=== PATIENT | male | born 1945 | race Caucasian/White ===

== ENCOUNTER 2021-09-19 05:54 | Day surgery (SDC) | payer OTHER ==
[2021-09-16 09:54] LABS: BASOPHILS # (AUTO) 0.1 X10'3 (0-0.2); EOSINOPHILS # (AUTO) 0.1 X10'3 (0-0.9); EOSINOPHILS % (AUTO) 2.5 % (0-6); LYMPHOCYTES # (AUTO) 1.1 X10'3 (1.1-4.8); MEAN CORPUSCULAR HEMOGLOBIN 32.1 PG (27.0-31.0); MEAN CORPUSCULAR HGB CONC 34.3 g/dL (33.0-36.5); MEAN CORPUSCULAR VOLUME 93.6 FL (78-98); MEAN PLATELET VOLUME 7.8 FL (7.4-10.4); MONOCYTES # (AUTO) 0.5 X10'3 (0-0.9); MONOCYTES % (AUTO) 9.9 % (2-12); NEUTROPHILS # (AUTO) 3.4 X10'3 (1.8-7.7); NEUTROPHILS % (AUTO) 65.6 % (42-75); PRE OP HEMOGLOBIN 13.1 g/dL (14.0-17.9); PRE OP PLATELET COUNT 183 X10'3 (140-440); RED BLOOD COUNT 4.06 X10'6 (4.70-6.10); RED CELL DISTRIBUTION WIDTH 13.3 % (11.5-14.5)
[2021-09-16 10:01] LABS: ALBUMIN 3.3 G/DL (3.4-5.0); ALKALINE PHOSPHATASE 75 IU/L (46-116); BLOOD UREA NITROGEN 17 MG/DL (7-18); BUN/CREATININE RATIO 14.9 (5.4-32.0); CALCIUM 8.5 MG/DL (8.5-10.1); CREATININE 1.14 MG/DL (0.60-1.10); PRE OP ALT 49 U/L (30-65); PRE OP AST 24 U/L (10-37); PRE OP BILIRUB, TOTAL 0.3 MG/DL (0.0-1.0); PRE OP GLUCOSE 90 MG/DL (70-104); TOTAL CARBON DIOXIDE 26.6 MMOL/L (24-32); TOTAL PROTEIN 6.5 G/DL (6.4-8.2); eGFR 63 ML/MIN
[2021-09-16 11:04] LABS: CHLORIDE 101 MMOL/L (99-107); PRE OP POTASSIUM 4.6 MMOL/L (3.4-5.1)
[2021-09-16 11:06] LABS: PRE OP ANION GAP 7 (8-16); PRE OP SODIUM 135 MMOL/L (135-145)
[2021-09-19] VITALS (9 sets, daily range): BP systolic 130–190; BP diastolic 70–95
[~2021-09-19] VITALS: Ht 170.2 cm; Wt 78.3 kg
[~2021-09-19 05:54] MED LIST: AMLO-139 PO; AMPH10TA PO; ATOR10TA87 PO; BUDESONIDE PO; CARV25TA2 PO; DOCUMENT DATE & TIME OF BETA-BLOCKER PO ONE; LEUP3.753 IM; LISI20TA28 PO; METH-603 PO; PARO20TA6 PO; PRIM250T32 PO; SPIR1TAB4 PO; cefazolin/dext.iso 2gm/50ml IV ONE; famotidine 20mg tablet PO ONE; ringers solution, lacted 1,000 ML IV SCH
[2021-09-19] MEDS ORDERED: BUPIVAcaine/PF 2.5mg/ml (0.25%) 10ml vial ONE (06:52)
[2021-09-19] MEDS ORDERED: IBUP-1985 PO (08:04)
[2021-09-19] MEDS ORDERED: meperidine/PF 25mg/ml syringe IV PRN ×3 (08:55)
[2021-09-19] MEDS ORDERED: proCHLORperazine 10 MG/2 ml inj IV PRN (08:55)
[2021-09-19] MEDS ORDERED: ondansetron/PF 4mg/2ml inj IV PRN (08:55)
[2021-09-19] MEDS ORDERED: morphine 4 MG/ML inj SYRINge IV PRN (08:55)
[2021-09-19] MEDS ORDERED: morphine 2 MG/ML inj. syringe IV PRN (08:55)
[2021-09-19] MEDS ORDERED: labetalol 20mg/4ml (5mg/ml) syringe IV PRN (08:55)
[2021-09-19] MEDS ORDERED: ringers solution, lacted 1,000 ML IV SCH (08:55)
[2021-09-19] MEDS ORDERED: fentaNYL/PF 50MCG/1 ML 2ML syringe ONE (10:30)
[2021-09-19] MEDS ORDERED: midazolam 1 mg/ML 2ml injection ONE (10:31)
[2021-09-19] MEDS ORDERED: LIDOcaine 0.5% (5mg/ml) 50ml vial ONE (10:32)
--- NOTE | 2021-09-19 11:00 | NUR ---
Received from OR via [facility], accompanied by Anesthesiologist Christine and report given by Anesthesiolgist. RT HAND DSG CDI,MOVES FINGERS, FINGERS WARM, BRISK CAP REFILLS. VSS. NO CO PAIN.
--- NOTE | 2021-09-19 12:00 | NUR ---
DC TO HOME, VSS,DSG TO RT HAND, CDI. MOVING FINGERS. ICE PRESENT. BRISK CAP REFILLS.DC INSTRUCTIONS GIVEN TO PT AND , STATES UNDERSTANDS. TO HOME VIA POV.
== END 2021-09-19 12:00 | disposition home or self-care (01) ==
LOC: PAS 05:54
PROVIDERS: ATTEND Orthopaedic Surgery Hand Surgery
DX: G56.01 Carpal tunnel syndrome, right upper limb (principal); G47.30 Sleep apnea, unspecified; I10 Essential (primary) hypertension; G62.9 Polyneuropathy, unspecified; H54.40 Blindness, one eye, unspecified eye; M35.3 Polymyalgia rheumatica; Z98.49 Cataract extraction status, unspecified eye; Z98.890 Other specified postprocedural states; Z79.899 Other long term (current) drug therapy; Z20.822 Contact with and (suspected) exposure to COVID-19
CPT/HCPCS: 36415; 64721; 80053; 82948; 85025; 93005; J0690; J2250; J3010; J3490; J7030; J7120; U0003; U0005; Z7506; Z7512; A4215

== ENCOUNTER 2021-10-31 05:23 | Day surgery (SDC) | payer OTHER ==
[2021-10-24 14:57] LABS: BASOPHILS % (AUTO) 0.7 % (0-1); EOSINOPHILS # (AUTO) 0.1 X10'3 (0-0.9); EOSINOPHILS % (AUTO) 2.2 % (0-6); LYMPHOCYTES # (AUTO) 0.7 X10'3 (1.1-4.8); LYMPHOCYTES % (AUTO) 13.7 % (21-51); MEAN CORPUSCULAR HEMOGLOBIN 32.3 PG (27.0-31.0); MEAN CORPUSCULAR HGB CONC 34.1 g/dL (33.0-36.5); MEAN CORPUSCULAR VOLUME 94.8 FL (78-98); MEAN PLATELET VOLUME 7.7 FL (7.4-10.4); MONOCYTES # (AUTO) 0.5 X10'3 (0-0.9); MONOCYTES % (AUTO) 10.5 % (2-12); NEUTROPHILS # (AUTO) 3.8 X10'3 (1.8-7.7); NEUTROPHILS % (AUTO) 72.9 % (42-75); PRE OP PLATELET COUNT 182 X10'3 (140-440); RED BLOOD COUNT 4.01 X10'6 (4.70-6.10); RED CELL DISTRIBUTION WIDTH 13.4 % (11.5-14.5)
[2021-10-24 15:11] LABS: ALBUMIN 3.3 G/DL (3.4-5.0); ALKALINE PHOSPHATASE 68 IU/L (46-116); BLOOD UREA NITROGEN 21 MG/DL (7-18); BUN/CREATININE RATIO 20.4 (5.4-32.0); CALCIUM 8.5 MG/DL (8.5-10.1); CHLORIDE 103 MMOL/L (99-107); CREATININE 1.03 MG/DL (0.60-1.10); PRE OP ALT 38 U/L (30-65); PRE OP ANION GAP 4 (8-16); PRE OP AST 27 U/L (10-37); PRE OP BILIRUB, TOTAL 0.2 MG/DL (0.0-1.0); PRE OP GLUCOSE 85 MG/DL (70-104); PRE OP SODIUM 136 MMOL/L (135-145); TOTAL CARBON DIOXIDE 28.9 MMOL/L (24-32); TOTAL PROTEIN 6.5 G/DL (6.4-8.2); eGFR 71 ML/MIN
[~2021-10-31] VITALS: Ht 172.7 cm; Wt 79.3 kg
[~2021-10-31 05:23] MED LIST changes: -AMLO-139 PO; +AMLO10TA13 PO; -ATOR10TA87 PO; -DOCUMENT DATE & TIME OF BETA-BLOCKER PO ONE; +LISI10TA27 PO; -LISI20TA28 PO; +MEMA5TAB PO; -METH-603 PO; -SPIR1TAB4 PO; -cefazolin/dext.iso 2gm/50ml IV ONE; -famotidine 20mg tablet PO ONE
[2021-10-31 05:30] VITALS: BP 142/80
[2021-10-31] MEDS ORDERED: cefazolin/dext.iso 2gm/50ml IV ONE (05:30)
[2021-10-31] MEDS ORDERED: famotidine 20mg tablet PO ONE (05:30)
[2021-10-31] MEDS ORDERED: DOCUMENT DATE & TIME OF BETA-BLOCKER PO ONE (05:30)
[2021-10-31] MEDS ORDERED: LIDOcaine 1% 30ml preserv. free vial ONE (07:54)
[2021-10-31] MEDS ORDERED: BUPIVAcaine/PF 2.5mg/ml (0.25%) 10ml vial ONE (08:47)
[2021-10-31] MEDS ORDERED: midazolam 1 mg/ML 2ml injection ONE (08:58)
[2021-10-31] MEDS ORDERED: fentaNYL/PF 50MCG/1 ML 2ML syringe ONE (08:58)
[2021-10-31] MEDS ORDERED: propofol inj 20 ML IV ONE (09:00)
[2021-10-31 09:20] VITALS: BP 119/70
--- NOTE | 2021-10-31 09:20 | NUR ---
Received from OR via [facility], accompanied by Anesthesiologist trip and report given by Anesthesiolgist. left dressing to hand cdi. no pain, thomas. ice applied. fingers warm. no resp distress.
[2021-10-31] MEDS ORDERED: ketorolac trometh. 30mg/ml inj. ONE (09:24)
[2021-10-31 09:30] VITALS: BP 127/70
[2021-10-31 09:40] VITALS: BP 141/79
[2021-10-31 09:50] VITALS: BP 130/75
--- NOTE | 2021-10-31 10:00 | NUR ---
dc to home. driving. given dc instructions.left hand dressing cdi. states understands.moves fingers well. no pain.
[2021-10-31 10:01] VITALS: BP 130/75
== END 2021-10-31 10:00 | disposition home or self-care (01) ==
LOC: PAS 05:23
PROVIDERS: ATTEND Orthopaedic Surgery Hand Surgery
DX: G56.02 Carpal tunnel syndrome, left upper limb (principal); I10 Essential (primary) hypertension; G47.30 Sleep apnea, unspecified; G62.9 Polyneuropathy, unspecified; Z20.822 Contact with and (suspected) exposure to COVID-19; Z79.899 Other long term (current) drug therapy; Z85.46 Personal history of malignant neoplasm of prostate; Z98.41 Cataract extraction status, right eye; Z98.42 Cataract extraction status, left eye
CPT/HCPCS: 36415; 64721; 80053; 82948; 85025; J0690; J1885; J2250; J2704; J3010; J3490; J7030; J7120; U0003; U0005; Z7506; Z7512; A4215